=== PATIENT | female | born 1990 | race African-American/Black ===

== ENCOUNTER 2017-01-19 22:53 | Emergency (ER) | payer OTHER ==
[~2017-01-19] VITALS: Ht 160 cm; Wt 68.0 kg
[2017-01-20] MEDS ORDERED: MOBIC15 MG PO (00:22)
[2017-01-20] MEDS ORDERED: FLEXERIL PO (00:22)
[2017-01-20] MEDS ORDERED: MEDROLDOSEPACK PO (00:22)
[2017-01-20 00:39] VITALS: BP 105/48
== END 2017-01-20 00:40 | disposition home or self-care (01) ==
LOC: ER 22:53
DX: S16.1XXA Strain of muscle, fascia and tendon at neck level, initial encounter (principal); V89.2XXA Person injured in unspecified motor-vehicle accident, traffic, initial encounter; Y93.I9 Activity, other involving external motion; Y92.89 Other specified places as the place of occurrence of the external cause; Y99.8 Other external cause status; S40.012A Contusion of left shoulder, initial encounter; S50.02XA Contusion of left elbow, initial encounter

== ENCOUNTER 2017-12-12 12:22 | Emergency (ER) | payer BC, OTHER ==
[~2017-12-12] VITALS: Ht 165.1 cm; Wt 63.5 kg
[~2017-12-12 12:22] MED LIST: FLEXERIL PO; MEDROLDOSEPACK PO; MOBIC15 MG PO
[2017-12-12] MEDS ORDERED: AMOXICILLIN500 M1 PO (12:28)
[2017-12-12] MEDS ORDERED: IBUPROFEN 600600 M1 PO (12:28)
== END 2017-12-12 13:19 | disposition home or self-care (01) ==
LOC: ER 12:22
DX: J02.9 Acute pharyngitis, unspecified (principal)

== ENCOUNTER 2018-05-20 08:01 | Emergency (ER) | payer BC, OTHER ==
[~2018-05-20] VITALS: Ht 160 cm; Wt 5.9 kg
[~2018-05-20 08:01] MED LIST changes: +AMOXICILLIN500 M1 PO; +IBUPROFEN 600600 M1 PO
[2018-05-20 09:16] LABS: URINE BILIRUBIN NEGATIVE (Negative); URINE BLOOD NEGATIVE (Negative); URINE CLARITY CLEAR; URINE COLOR YELLOW; URINE GLUCOSE-RANDOM* NEGATIVE (Negative); URINE KETONES NEGATIVE (Negative); URINE LEUKOCYTES-REFLEX NEGATIVE (Negative); URINE NITRITE-REFLEX NEGATIVE (Negative); URINE PROTEIN (DIPSTICK) NEGATIVE (Negative); URINE UROBILINOGEN 0.2 E.U./dl (0.2-1.0)
[2018-05-20 10:44] VITALS: BP 128/66
== END 2018-05-20 10:45 | disposition home or self-care (01) ==
LOC: ER 08:01
PROVIDERS: Emergency Medicine
DX: R10.2 Pelvic and perineal pain (principal)

== ENCOUNTER 2019-01-01 15:08 | Emergency (ER) | payer BC, OTHER ==
[~2019-01-01] VITALS: Ht 160 cm; Wt 59.0 kg
[2019-01-01] MEDS ORDERED: IBUPROFEN 600600 M1 PO (16:12)
[2019-01-01] MEDS ORDERED: AMOXICILLIN500 M1 PO (16:12)
[2019-01-01 16:18] VITALS: BP 112/80
== END 2019-01-01 16:18 | disposition home or self-care (01) ==
LOC: ER 15:08
DX: K02.9 Dental caries, unspecified (principal); K08.89 Other specified disorders of teeth and supporting structures; J02.9 Acute pharyngitis, unspecified

== ENCOUNTER 2019-01-10 21:58 | Emergency (ER) | payer BC, OTHER ==
[~2019-01-10] VITALS: Ht 160 cm; Wt 59.0 kg
[2019-01-10 22:25] LABS: ABSOLUTE NEUTROPHILS 6.3 thou/uL (1.4-8.2); BASOPHILS 0.6 % (0.0-2.0); EOSINOPHILS 0.3 % (0.0-3.0); HEMATOCRIT 38.2 % (37.0-47.0); HEMOGLOBIN 13.2 gm/dL (12.0-15.0); LYMPHOCYTES 18.3 % (24.0-44.0); MCH 27.5 pg (26.0-34.0); MCHC 34.6 g/dL (28.0-37.0); MCV 79.6 fL (80.0-100.0); MONOCYTES 6.1 % (1.0-8.0); PLATELET COUNT 305 thou/uL (150-400); POLYS 74.7 % (36.0-66.0); RDW 12.9 % (10.5-14.5); WBC 8.5 thou/uL (4.0-11.0)
[2019-01-10 22:30] LABS: URINE BILIRUBIN NEGATIVE (Negative); URINE BLOOD NEGATIVE (Negative); URINE CLARITY CLEAR; URINE COLOR YELLOW; URINE GLUCOSE-RANDOM* NEGATIVE (Negative); URINE KETONES 1+ (Negative); URINE LEUKOCYTES 1+ (Negative); URINE NITRITE NEGATIVE (Negative); URINE PROTEIN (DIPSTICK) NEGATIVE (Negative); URINE SPECIFIC GRAVITY 1.015 (1.005-1.035); URINE UROBILINOGEN 0.2 E.U./dl (0.2-1.0)
[2019-01-10 22:30] LABS: CALCIUM 9.2 mg/dL (8.5-10.1); CREATININE 0.8 mg/dL (0.6-1.0)
[2019-01-10 22:36] LABS: ALBUMIN 3.8 g/dL (3.4-5.0); TOTAL BILIRUBIN 0.7 mg/dL (<0.1-1.0)
[2019-01-10 22:43] LABS: BACTERIA 1-9 Few /HPF (None Seen); CASTS None Seen /LPF (None Seen); CRYSTALS None Seen /LPF (None Seen); MUCUS 0-3 Light strn/LPF (None Seen); SQUAMOUS 4-10 Moderate /LPF (0-3); URINE RBC 0-2 Rare /HPF (0-2); URINE WBC 6-15 Few /HPF (0-5)
[2019-01-10 23:55] VITALS: BP 126/96
[2019-01-11] MEDS ORDERED: KEFLEX500 M1 PO (00:41)
[2019-01-11] MEDS ORDERED: ZOFRAN ODT4 MG PO (00:41)
== END 2019-01-11 04:15 | disposition home or self-care (01) ==
LOC: ER 21:58
PROVIDERS: Emergency Medicine
DX: K08.89 Other specified disorders of teeth and supporting structures (principal); R11.2 Nausea with vomiting, unspecified

== ENCOUNTER 2019-08-04 09:13 | Emergency (ER) | payer BC, OTHER ==
[~2019-08-04] VITALS: Ht 160 cm; Wt 59.0 kg
[2019-08-04 09:13] VITALS: BP 120/46
[~2019-08-04 09:13] MED LIST changes: +KEFLEX500 M1 PO; +ZOFRAN ODT4 MG PO
== END 2019-08-04 10:20 | disposition home or self-care (01) ==
LOC: ER 09:13
DX: T14.8XXA Other injury of unspecified body region, initial encounter (principal); W57.XXXA Bitten or stung by nonvenomous insect and other nonvenomous arthropods, initial encounter; Y93.89 Activity, other specified; Y92.89 Other specified places as the place of occurrence of the external cause; Y99.8 Other external cause status